=== PATIENT | male | born 1980 | race Caucasian/White ===

== ENCOUNTER → 2018-04-08 | Outpatient (CLI) | payer OTHER ==
--- NOTE | 2018-04-08 12:20 | RAD ---
EXAM: Pelvis and right hip, 2 views. HISTORY: Pain. COMPARISON: None. FINDINGS: A frontal view the pelvis and frontal and frog-leg views of the right hip are obtained. There is no fracture, dislocation or subluxation. There is decreased bilateral femoral head-neck offset due to suspected chronic femoroacetabular impingement. IMPRESSION: 1. No acute osseous finding. 2. Changes due to a suspected component of chronic bilateral femoroacetabular impingement. Electronically signed by: Denisha Daniels MD (04/08/2018 12:16 PM) [facility]
== END | disposition home or self-care (01) ==
LOC: RAD 11:17
PROVIDERS: ATTEND Registered Nurse
DX: M54.5 Low back pain (principal); M25.551 Pain in right hip
CPT/HCPCS: 72100; 73502